=== PATIENT | female | born 1995 ===

== ENCOUNTER 2022-12-28 11:11 | Emergency (ER) | payer OTHER, SELFPAY ==
[2022-12-28 11:39] VITALS: BP 118/70; PULSE 95; RESP 18; TEMP 37.3; O2SAT 100
--- NOTE | 2022-12-28 11:46 | ED.URI ---
HPI - URI/Sore Throat General Chief Complaint: Upper Respiratory Infection Stated Complaint: Sore Throat Time Seen by Provider: 12/28/22 11:46 Source: patient, RN notes reviewed and old records reviewed Mode of arrival: ambulatory Limitations: no limitations History of Present Illness HPI Narrative: 27-year-old female presents to the [facility] with complaints of a sore throat since yesterday. Reports fevers, has been taking ibuprofen. MD elicited complaint: sore throat Onset (ago): day(s) (1) Related Data Home Medications Medication Instructions Recorded Confirmed letrozole 2.5 mg tablet mg 12/28/22 Allergies Allergy/AdvReac Type Severity Reaction Status Date / Time No Known Drug Allergies Allergy Mild Unknown Verified 12/28/22 11:38 Review of Systems Review of Systems: All systems reviewed & are unremarkable except as noted in HPI and below Constitutional: Constitutional: Reports as per HPI, Reports chills and Reports fever(s) Eyes: Eyes: Reports no additional eye complaints ENT: Reports as per HPI and Reports sore throat Cardiovascular: Cardiovascular: Reports no additional cardiovascular complaints, Denies chest pain and Denies dyspnea Respiratory: Respiratory: Reports no additional respiratory complaints, Denies chest congestion, Denies cough and Denies dyspnea Gastrointestinal: Gastrointestinal: Reports no additional gastrointestinal complaints, Denies abdominal pain, Denies nausea and Denies vomiting Musculoskeletal: Musculoskeletal: Reports no additional musculoskeletal complaints Integumentary/Breasts: Skin/Breast: Reports system reviewed and no additional complaints, except as docu Neurologic: Reports system reviewed and no additional complaints, except as documented Psychiatric: Psychiatric: Reports no additional psychiatric complaints Allergic/Immunologic: Allergic/Immunologic: Reports no additional allergic/immunologic complaints [facility] Past Medical History Medical History (Updated 12/28/22 @ 12:28 by Allie Bethea APRN) No significant medical problems Surgical History Surgical History (Updated 12/28/22 @ 12:28 by Allie Bethea APRN) No pertinent past surgical history Social History Social History (Updated 12/28/22 @ 12:28 by Allie Bethea APRN) Living arrangements: with family Gender identity (if verbalized by the patient): Female Comments At the time of my signature, I reviewed and agree with the nursing past medical, surgical, social, and family history. There is no relevant family history pertinent to the patient complaint. Exam Const: General: cooperative, healthy appearing, comfortable, no acute distress, well developed, alert and well nourished Nutritional Appearance: well nourished Orientation/consciousness: patient oriented x3 Limitations: no limitations HENMT: Head: normal to inspection Ears: hearing grossly normal bilaterally and external ears normal Face/Nose/Sinus: Normal external nose present, Normal nares present, Normal nasal mucous membranes and turbinates present and normal facial exam Face and sinus: normal facial exam Mouth: Yes Normal oral and palatal mucosa present, Yes lip normal and Yes moist mucous membranes Throat: posterior oropharynx normal, uvula midline and abnormal tonsil bilateral erythema, exudates and hypertrophy 3+ Eyes: General: appearance normal, both eyes and all related structures Alignment and Position: alignment normal Periorbital: periorbital findings normal Conjunctivae: conjunctivae normal Pupils: Equal, round and reactive pupils present EOM: EOMs intact bilaterally Neck: Neck: normal visual inspection, full ROM, no meningeal signs and lymphadenopathy (Submandibular bilateral) Chest: Chest palpation & inspection: normal inspection of the chest Resp: Effort & Inspection: normal respiratory effort and able to speak in complete sentences Auscultation: clear to auscultation bilaterally, no crackles, no rales, no rhon
== END 2022-12-28 12:31 | disposition home or self-care (01) ==
PROVIDERS: Emergency Provider Nurse Practitioner; PCP Internal Medicine
DX: J02.0 Streptococcal pharyngitis (principal)
CPT/HCPCS: 87880; 99213; G0463

== ENCOUNTER 2023-07-26 09:28 | Emergency (ER) | payer OTHER, SELFPAY ==
--- NOTE | ~2023-07-26 | CT_ITS ---
EXAMINATION: CT soft tissue neck w con DATE: 07/26/2023 14:08 INDICATION: TECHNIQUE: Computed tomography (CT) of the neck was performed with 75 mL Omnipaque-350 intravenous co ntrast. The dose-length product was 439.61 mGy-cm. COMPARISON: None FINDINGS: The thyroid gland is unremarkable. The submandibular and parotid glands are symmetric. Bilateral upper anterior cervical chain lymphadenopathy. No masses identified. The superior mediastinum is unr emarkable. The airway is unremarkable. Parapharyngeal and pre-glottic fat planes are preserved. Normally enhancing neck arteries. The orbits are unremarkable. Visualized sinuses and mastoid air cells are well aerated. Visualized lung parenchyma clear. There is cervical spondylosis. IMPRESSION: Bilateral upper anterior cervical chain lymphadenopathy. Reviewed, dictated and finalized at location [facility]. [facility]
[2023-07-26 12:08] VITALS: BP 124/80; PULSE 58; RESP 20; TEMP 36.5; O2SAT 100
--- NOTE | 2023-07-26 12:20 | ED.SKABFB ---
HPI - Skin/Abscess/Foreign Bdy General Chief complaint: Skin/Abscess/Foreign Body Stated complaint: abcess tooth Time Seen by Provider: 07/26/23 12:02 History of Present Illness HPI narrative: Patient is a 28-year-old female presenting with left-sided facial swelling and jaw pain. He states she is concerned for an impacted wisdom tooth. Pain started within the last day states that it is difficult to open her jaw making her feel like it is difficult to breathe. No shortness of breath or chest pain. Handling secretions well. No voice changes. Reports subjective fever. No further complaints. Related Data Home Medications Medication Instructions Recorded Confirmed letrozole 2.5 mg tablet mg 12/28/22 Allergies Allergy/AdvReac Type Severity Reaction Status Date / Time No Known Drug Allergies Allergy Mild Unknown Verified 12/28/22 11:38 Review of Systems Review of Systems: All systems reviewed & are unremarkable except as noted in HPI and below PMFSH Past Medical History Medical History No significant medical problems Surgical History Surgical History No pertinent past surgical history Social History Social History Living arrangements: with family Gender identity (if verbalized by the patient): Female Exam Narrative: GENERAL: Well-appearing, In no acute distress, pleasant cooperative HEAD: Normocephalic, atraumatic. EYES: PERRLA and EOMI. ENT: Mucous membranes moist. + minimal left-sided facial swelling, lower left molars tender, handling secretions well, mild trismus d/t pain NECK: Supple. CHEST: Clear to auscultation. No respiratory distress. HEART: Regular rate and rhythm EXTREMITIES: Normal range of motion. SKIN: Warm, dry, no rash. NEURO: Alert and oriented x3. PSYCH: Normal mood and affect. Course Vital Signs Vital signs: Vital Signs Temperature 97.7 F 07/26/23 12:08 Pulse Rate 58 L 07/26/23 12:08 Respiratory Rate 20 07/26/23 12:08 Blood Pressure 124/80 07/26/23 12:08 Pulse Oximetry 100 07/26/23 12:08 Temperature 97.7 F 07/26/23 12:08 Pulse Rate 64 07/26/23 15:21 Respiratory Rate 18 07/26/23 15:21 Blood Pressure 114/66 07/26/23 15:21 Pulse Oximetry 100 07/26/23 15:21 MDM - Skin/Abscess/Foreign Bdy MDM Narrative Medical decision making narrative: 28-year-old female presenting with left-sided facial swelling and jaw pain. Vital stable. Exam remarkable for the above. Blood work is unremarkable. No leukocytosis. CT soft tissue neck without acute abnormalities. No abscesses or evidence of odontogenic infection. Patient received Toradol and on re-evaluation she states that she feels much better. She is able to open her mouth normally. States the pain is much improved. Discussed the reassuring workup, will prescribed extra-strength ibuprofen. Patient will call her dentist today to schedule close follow-up. Strict return precautions given. Patient voiced understanding and is agreeable with plan. Discharged in stable condition. Differential Diagnosis Differential diagnosis: Likely other ( odontogenic infection, dental abscess, TMJ disorder, jaw pain) Medical Records Attestation: I reviewed the patient's medical records. Lab Data Attestation: I reviewed the patient's lab results. 07/26/23 12:27 07/26/23 12:27 Labs: Lab Results 07/26/23 Range/Units 12:27 WBC 6.8 (4.5-10.0) K/mm3 RBC 4.85 (4.2-5.4) M/mm3 Hgb 14.4 (12.0-15.0) g/dL Hct 44.1 (37.0-47.0) % MCV 90.9 (80-100) fl MCH 29.7 (26-34) pg MCHC 32.7 (32-36) g/dl RDW 12.7 (11.5-14.5) % Plt Count 143 L (150-375) k/mm3 MPV 11.3 H (7.4-10.4) fl Immature Gran % (Auto) 0.1 (0-0.5) % Neut % (Auto) 69.6 (45.5-73.1) % Lymph % (Auto) 24
[2023-07-26 12:33] LABS: Basophils Percent Auto 0.3 % (0.2-1.2); Eosinophils Percent Auto 0.4 % (0-4.4); Hematocrit 44.1 % (37.0-47.0); Hemoglobin 14.4 g/dL (12.0-15.0); Immature Granulocyte Absolute 0.01 K/mm3 (0.00-0.031); Immature Granulocyte Percent A 0.1 % (0-0.5); Immature Platelet Fraction Pct 6.4 % (0.9-11.2); Lymphocytes Absolute Auto 1.68 K/mm3 (0.9-3.2); Lymphocytes Percent Auto 24.7 % (18.3-44.2); Mean Corpuscular HGB Conc 32.7 g/dl (32-36); Mean Corpuscular Hemoglobin 29.7 pg (26-34); Mean Corpuscular Volume 90.9 fl (80-100); Mean Platelet Volume 11.3 fl (7.4-10.4); Monocytes Absolute Auto 0.3 K/mm3 (0.1-0.6); Monocytes Percent Auto 4.9 % (2.6-8.5); Neutrophils Absolute Auto 4.7 K/mm3 (1.3-6.7); Neutrophils Percent Auto 69.6 % (45.5-73.1); Platelet Count Result 143 k/mm3 (150-375); Red Blood Count 4.85 M/mm3 (4.2-5.4); Red Cell Distribution Width 12.7 % (11.5-14.5); White Blood Count 6.8 K/mm3 (4.5-10.0)
[2023-07-26 12:41] LABS: Anion Gap 8 mmol/L (8-16); Blood Urea Nitrogen 8 mg/dL (7-17); Carbon Dioxide 24 mmol/L (22-30); Chloride 108 mmol/L (98-107); Estimated CRCL calculation 112 ml/min; Estimated Glomerular Filt Rate > 60; Glucose 115 mg/dL (65-110); Potassium 3.7 mmol/L (3.4-5.0); Sodium 140 mmol/L (137-145)
[2023-07-26] MEDS: SODIUM CHLORIDE 0.9% IV 1,000 ML 999 ML IV CONT (13:16)
[2023-07-26] MEDS: KETOROLAC 30 MG/ML VIAL (*BKC) IV PUSH (13:16)
[2023-07-26 13:20] VITALS: BP 110/65; PULSE 71; RESP 18; O2SAT 100
[2023-07-26 15:21] VITALS: BP 114/66; PULSE 64; RESP 18; O2SAT 100
== END 2023-07-26 15:23 | disposition home or self-care (01) ==
PROVIDERS: Emergency Provider Emergency Medicine; PCP Internal Medicine
DX: R68.84 Jaw pain (principal); R59.1 Generalized enlarged lymph nodes
CPT/HCPCS: 36415; 70491; 80048; 81025; 85025; 85055; 96361; 96374; 99284; J1885; J7030; Q9967